=== PATIENT | female | born 1985 | race Caucasian/White ===

== ENCOUNTER 2017-07-22 12:18 | Emergency (ER) | payer OTHER ==
[2017-07-22 12:29] VITALS: BP 121/72; PULSE 94; RESP 18; TEMP 98.2; O2SAT 96
--- NOTE | 2017-07-22 12:41 | EDPHY ---
H & P Time Seen by Provider: 07/22/17 12:27 HPI/ROS: CHIEF COMPLAINT: Cough History by patient HISTORY OF PRESENT ILLNESS: 32-year-old otherwise healthy young woman with no prior history of asthma presents complaining of 1 month of URI symptoms with cough occasionally productive of green sputum as well as sometimes dry and a occasional feeling of tightness in her chest like she is not breathing properly. She denies any fever chills. Her son had croup 2 weeks ago. She was treated for strep throat 5 weeks ago and had no cough at that time. Cough seems to be worse at night sometimes. She also has a hoarse voice which is within the morning and worse at night. She has no prior history of allergies. She does not smoke. She has tried [id number] cough medicines with minimal relief. REVIEW OF SYSTEMS: As in HPI, and all other systems reviewed and are negative Smoking Status: Never smoked Physical Exam: General Appearance: Alert and no distress. Head: normocephalic, atraumatic, no sinus tenderness Eyes: Pupils equal and round no injection. OP: mucus membranes moist, no tonsillar enlargement, no erythema or exudates Neck: no meningismus, no cervical nodes, no submandibular nodes Respiratory: Chest is nontender, lungs are clear to auscultation. Positive wheeze with forced expiration and cough Cardiac: regular rate and rhythm. Gastrointestinal: Abdomen is soft and nontender, no masses, bowel sounds normal. Musculoskeletal: Neck is supple and nontender. Extremities have full range of motion and are nontender. Skin: No rashes or lesions. Constitutional: Initial Vital Signs Temperature (C) 36.8 C 07/22/17 12:22 Heart Rate 94 07/22/17 12:22 Respiratory Rate 18 07/22/17 12:22 Blood Pressure 121/72 H 07/22/17 12:22 O2 Sat (%) 96 07/22/17 12:22 O2 Delivery Mode Room Air Allergies/Adverse Reactions: No Known Allergies Allergy (Unverified 07/22/17 12:22) Home Medications: Medication Instructions Recorded Albuterol [Proventil Inhaler HFA 1 - 2 puffs IH Q4H #1 mdi 07/22/17 (*)] MDM/Departure - MDM ED Course/Re-evaluation: 32-year-old woman presents complaining of cough and chest tightness and runny nose. Patient is nontoxic-appearing and vital signs within normal limits. There is no evidence of hypoxia systemic toxicity and I doubt pneumonia. Will give a trial of albuterol for her wheezy cough. We discussed home care and conservative measures. We discussed return precautions. - Depart Disposition: Home, Routine, Self-Care Clinical Impression: Acute bronchitis Qualifiers: Bronchitis organism: unspecified organism Qualified Code(s): J20.9 - Acute bronchitis, unspecified Condition: Good Instructions: Acute Bronchitis (ED) Additional Instructions: You were seen by Dr. Ling Reese. Use albuterol inhaler as needed for cough before you go to bed at night to help with the cough and tightness in her chest. Use a humidifier in the room where you sleep. Try hot drinks with honey. Try pseudoephedrine for nasal congestion. Return for any worsening or new concerns. Prescriptions: Albuterol [Proventil Inhaler HFA (*)] 1 - 2 puffs IH Q4H #1 mdi Referrals: NONE *PRIMARY CARE P,. [Primary Care Provider] - As per Instructions
== END 2017-07-22 12:53 | disposition home or self-care (01) ==
LOC: CED 12:18
DX: J20.9 Acute bronchitis, unspecified (principal)